=== PATIENT | male | born 1995 | race Hispanic/Latino ===

== ENCOUNTER 2022-05-30 21:55 | Emergency (ER) | payer OTHER ==
[2022-05-30] MEDS ORDERED: Lidocaine 1% PF 5 ML VIAL ONE (23:52)
[2022-05-31] MEDS ORDERED: Boostrix 0.5 ML (Tdap) VIAL (>/=7 yrs of age) ONE (00:42)
[2022-05-31] MEDS ORDERED: Bacitracin 1 PK ONE (00:42)
== END 2022-05-31 01:22 | disposition home or self-care (01) ==
LOC: ERS 21:55
DX: S51.812A Laceration without foreign body of left forearm, initial encounter (principal); W26.0XXA Contact with knife, initial encounter; Z23 Encounter for immunization
CPT/HCPCS: 12002; 90471; 90715